=== PATIENT | female | born 1995 | race Caucasian/White ===

== ENCOUNTER 2020-03-05 00:17 | Emergency (ER) | payer BC, OTHER ==
--- NOTE | 2020-03-05 03:36 | EDM.PDOC ---
ED HPI GENERAL MEDICAL PROBLEM - General Chief Complaint: Respiratory Problem Stated Complaint: covid pos SOB Time Seen by Provider: 03/05/20 01:38 Source of Information: Reports: Patient History Limitations: Reports: No Limitations - History of Present Illness INITIAL COMMENTS - FREE TEXT/NARRATIVE: This is a 24-year-old female. She had onset on Saturday and with some shortness of breath and may be a low-grade fever though that has resolved. She went to get tested on because of the shortness of breath and she came back as COVID positive. This evening when she awoke from sleeping she felt like she was short of breath and she was currently concerned about that shows she comes to the ER. She also complains of some mild myalgias as well. She does no t appear to be short of breath in the ER and she says she is feeling much better in the ER. She has had no nausea vomiting or diarrhea no change in taste or smell. She does not have a sore throat and does not have a significant cough. - Related Data Allergies Allergy/AdvReac Type Severity Reaction Status Date / Time azithromycin [From Zithromax] Allergy Hives Verified 03/05/20 00:36 Home Meds: Home Meds Control 1 tab PO DAILY 03/05/20 [History] Sertraline [Zoloft] 25 mg PO DAILY 03/05/20 [History] Past Medical History - Past Surgical History HEENT Surgical History: Reports: Oral Surgery Social & Family History - Tobacco Use Smoking Status *Q: Never Smoker ED ROS GENERAL - Review of Systems Review Of Systems: See Below Constitutional: Reports: Fever, Chills, Fatigue HEENT: Reports: No Symptoms Respiratory: Reports: Shortness of Breath, Cough Cardiovascular: Denies: Chest Pain Endocrine: Reports: No Symptoms GI/Abdominal: Denies: Diarrhea, Nausea, Vomiting : Reports: No Symptoms Musculoskeletal: Reports: Other (Myalgias) Skin: Reports: No Symptoms Neurological: Reports: No Symptoms Psychiatric: Reports: No Symptoms Hematologic/Lymphatic: Reports: No Symptoms ED EXAM, GENERAL - Physical Exam Exam: See Below Exam Limited By: No Limitations General Appearance: Alert, WD/WN, No Apparent Distress Eye Exam: Bilateral Eye: Normal Inspection Ears: Normal External Exam, Normal Canal, Normal TMs Nose: Normal Inspection Throat/Mouth: Normal Voice, No Airway Compromise Head: Normocephalic Neck: Supple Respiratory/Chest: No Respiratory Distress, Lungs Clear, Normal Breath Sounds Cardiovascular: Regular Rate, Rhythm, No Murmur GI/Abdominal: Soft, Non-Tender Back Exam: Normal Inspection, Full Range of Motion Extremities: Normal Inspection, Normal Range of Motion Neurological: Alert, Oriented Psychiatric: Normal Affect, Normal Mood Skin Exam: Warm, Dry Course - Vital Signs Last Recorded V/S: Last Vital Signs Temp 97.2 F 03/05/20 00:33 Pulse 60 03/05/20 00:33 Resp 16 03/05/20 00:33 BP 129/87 03/05/20 00:33 Pulse Ox 97 03/05/20 00:33 - Orders/Labs/Meds Orders: Active Orders 24 hr Category Date Time Status CXR [Chest 1V Frontal] [CR] Stat Exams 03/05/20 00:57 Taken Labs: Laboratory Tests 03/05/20 03/05/20 03/05/20 Range/Units 02:47 02:47 02:47 WBC 4.36 (3.98-10.04) K/mm3 RBC 4.52 (3.98-5.22) M/mm3 Hgb 14.5 (11.2-15.7) gm/dl Hct 43.7 (34.1-44.9) % MCV 96.7 H (79.4-94.8) fl MCH 32.1 (25.6-32.2) pg MCHC 33.2 (32.2-35.5) g/dl RDW Std Deviation 42.6 (36.4-46.3) fL Plt Count 238 (182-369) K/mm3 MPV 9.8 (9.4-12.3) fl Neut % (Auto) 36.6 (34.0-71.1) % Lymph % (Auto) 39.0 (19.3-51.7) % Hernando % (Auto) 20.9 H (4.7-12.5) % Eos % (Auto) 2.3 (0.7-5.8) Baso % (Auto) 0.5 (0.1-1.2) % Neut # (Auto) 1.60 (1.56-6.13) K/mm3 Lymph # (Auto) 1.70 (1.18-3.74) K/mm3 Hernando # (Auto) 0.91 H (0.24-0.36) K/mm3 Eos # (Auto) 0.10 (0.04-0.36) K/mm3 Baso # (Auto) 0.02 (0.01-0.08) K/mm3 Manual Slide Review Abnormal smear Sodium 135 L (136-145) mEq/L Potassium 4.0 (3.5-5.1) mEq/L Chloride 102 (98-107) mEq/L Carbon Dioxide 28 (21-32) mEq/L Anion Gap 9.0 (5-15) BUN 9 (7-18) mg/dL Creatinine 0.7 (0.55-1.02) mg/dL Est Cr Clr Drug Dosing 105.17 mL/min Estimated GFR (MDRD) > 60 (>60) mL/min BUN/Creatinine Ratio 12.9 L (14-18) Glucose 99 (74-106) mg/dL Calcium 8.9 (8.5-10.1) mg/dL Ferritin 137 (8-252) ng/ml Total Bilirubin < 0.1 L (0.2-1.0) mg/dL AST 19 (15-37) U/L ALT 27 (14-59) U/L Alkaline Phosphatase 40 L (46-116) U/L Lactate Dehydrogenase 144 (81-234) U/L Creatine Kinase 106 (26-192) U/L C-Reactive Protein 2.9 H* (<1.0) mg/dL Total Protein 7.6 (6.4-8.2) g/dl Albumin 3.4 (3.4-5.0) g/dl Globulin 4.2 gm/dL Albumin/Globulin Ratio 0.8 L (1-2) - Radiology Interpretation Free Text/Narrative:: Chest x-ray does not show any acute infiltrates. - Re-Assessments/Exams Free Text/Narrative Re-Assessment/Exam: 03/05/20 04:12 I spoke to the patient regarding her lab results. Her LDH was 144 and normal ferritin of 137 and normal platelets of 238 and normal for CPK of 106 and normal and her liver enzymes were normal. This suggests that she is not in an acute state with her COVID positive infection. She did have a mildly elevated CRP at 2.9. I am going to discharge her home with instructions to her symptoms. If she develops shortness of breath from waking up she needs to get up and walk around slowly or sit up and if she can breathe some cool air. Departure - Departure Time of Disposition: 04:13 Disposition: Home, Self-Care 01 Condition: Good Clinical Impression: COVID-19, Shortness of breath, Situational anxiety - Discharge Information *PRESCRIPTION DRUG MONITORING PROGRAM REVIEWED*: Not Applicable *COPY OF PRESCRIPTION DRUG MONITORING REPORT IN PATIENT NORY: Not Applicable Instructions: COVID-19 Frequently Asked Questions, Shortness of Breath, Adult, [id number] Referrals: Shakila Reaves PA-C [Primary Care Provider] - Forms: ED Department Discharge Additional Instructions: Continue with the self quarantine and monitoring of symptoms, realize that we checked all the blood work that tests for severe COVID infection and none of them were positive. Also we did a chest x-ray that does not show any infiltrates. If you wake from sleep and feels short of breath sit upright for a few minutes or walk slowly around the house and breathe some cool air to see if that helps. If there is marked worsening of your symptoms then return to the ER. Sepsis Event Note (ED) - Evaluation Sepsis Screening Result: No Definite Risk - Focused Exam Vital Signs: Vital Signs Temp Pulse Resp BP Pulse Ox 03/05/20 00:33 97.2 F 60 16 129/87 97 - My Orders Last 24 Hours: My Active Orders 03/05/20 00:57 CXR [Chest 1V Frontal] [CR] Stat - Assessment/Plan Last 24 Hours: My Active Orders 03/05/20 00:57 CXR [Chest 1V Frontal] [CR] Stat
--- NOTE | 2020-03-05 09:09 | CR ---
Chest: Frontal view of the chest was obtained. Comparison: No prior chest imaging is available. Heart size and mediastinum are within normal limits. Lungs are clear with no acute parenchymal change. Bony structures are grossly intact. Impression: 1. Nothing acute is appreciated on frontal chest x-ray. Diagnostic code #1 This report was dictated in MDT
== END 2020-03-05 04:25 | disposition home or self-care (01) ==
LOC: JD.ED 00:17
DX: U07.1 COVID-19 (principal); F41.9 Anxiety disorder, unspecified; Z88.1 Allergy status to other antibiotic agents; Z79.899 Other long term (current) drug therapy
CPT/HCPCS: 36415; 71045; 71045-26; 80053; 82550; 82728; 83615; 85025; 86140; 99282; 99285-25